=== PATIENT | male | born 1960 | race Caucasian/White ===

== ENCOUNTER → 2019-11-07 14:24 | Outpatient (CLI) | payer BC, SELFPAY ==
--- NOTE | ~2019-11-07 | XR_ITS ---
EXAMINATION: XR fl inj shoulder RT - MR/CT EXAM DATE: 11/07/2019 15:28 INDICATION: Right shoulder pain, states lifting injury 9-10 months ago. TECHNIQUE: A time-out was performed to verify the patient's name, date of , and procedure to b e performed. The procedure including the risks, benefits and alternatives were discussed with the pat ient. Risks discussed included bleeding and infection. The patient understood the risks and agreed to proceed. The skin overlying the right shoulder joint was prepped and draped in usual sterile fashion . Anesthetic was administered with 2 milliliters 1% lidocaine subcutaneously. A 22 G needle was adv anced under fluoroscopic guidance into the joint. A total of 12 mL of 1:200 of 529 mg/mL Multihance, 1:4 lidocaine, and 1:4 Omnipaque 240 was instilled. The needle was removed and the entry site was cleaned and dressed. There were no immediate complications. The DAP for this procedure was 0.085 Gy cm2. The procedure was performed on 11/07/2019. FINDINGS: Real-time fluoroscopy demonstrates the needle and contrast in the right shoulder joint. IMPRESSION: Successful right shoulder joint injection. Reviewed, dictated and finalized at location B. [employer]IVE EXPERIENCES
--- NOTE | ~2019-11-07 | MR_ITS ---
EXAMINATION: MR shoulder RT w con DATE: 11/07/2019 16:07 INDICATION: Right shoulder pain. TECHNIQUE: Magnetic resonance imaging (MRI) of the right shoulder was performed without intravenous c ontrast after intra-articular injection of contrast (MR arthrogram). Sequences included axial T1-weig hted FS FSE and T2-weighted FS FSE, coronal-oblique T1-weighted FS FSE and T2-weighted FS FSE, and sa gittal-oblique T1-weighted FSE and T2-weighed FS FSE. COMPARISON: None. FINDINGS: Coracoacromial arch: The acromion undersurface is flat in morphology (type I). There is inferolateral tilt of the acromion . There is severe acromioclavicular joint osteoarthritis. There is moderate subacromial/subdeltoid bu rsitis. Rotator cuff: There is severe supraspinatus tendinopathy and moderate infraspinatus tendinopathy. There is a small interstitial tear of infraspinatus tendon. Teres minor tendon is normal. There is moderate subscapula ris tendinopathy with small articular-sided tear. There is no asymmetric fatty atrophy of the rotator cuff muscle bellies. Biceps tendon and glenoid labrum: Biceps tendon is in bicipital groove. Intra-articular biceps tendon is normal. There is a degenerativ e tear of the superior labrum from 10:00 to 12:00 (SLAP tear). Fluid: The glenohumeral joint is well distended by contrast. Bones/cartilage: There is deep partial thickness cartilage loss of glenoid involving the central articular surface. Th ere is cartilage surface irregularity of humeral head. IMPRESSION: 1. Severe rotator cuff tendinopathy with small interstitial tear of infraspinatus tendon and small ar ticular-sided tear of subscapularis tendon. 2. Moderate glenohumeral joint chondrosis. 3. Severe acromioclavicular joint osteoarthritis. 4. Moderate subacromial/subdeltoid bursitis. Reviewed, dictated and finalized at location A. 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 Severe rotator cuff tendinopathy with small interstitial tear of infraspinat us tendon and small articular-sided tear of subscapularis tendon. 2. Moderate glenohumeral joint chondrosis. 3. Severe acromioclavicular joint osteoarthritis. 4. Moderate subacromial/subdeltoid bursitis.
== END ==
DX: M19.011 Primary osteoarthritis, right shoulder (principal); M75.51 Bursitis of right shoulder
CPT/HCPCS: 23350; 73222; 77002; A9577; Q9966

== ENCOUNTER → 2020-10-30 11:06 | Outpatient (CLI) | payer BC, SELFPAY ==
--- NOTE | ~2020-10-30 | XR_ITS ---
EXAMINATION: XR chest 2V EXAM DATE: 10/30/2020 11:20 INDICATION: Persistent cough. TECHNIQUE: Frontal and lateral projections of the chest obtained and reviewed. There is no prior sheryl dy for comparison. FINDINGS: Small to moderate amount of right, small amount of left-sided peripheral distribution airs pace disease which is suspicious for COVID pneumonia. No pneumothorax or pleural effusion. Cardiomedi astinal silhouette is normal. Patient has diffuse idiopathic skeletal hyperostosis (DISH). IMPRESSION: Small to moderate right, small left acute airspace disease likely COVID pneumonia. Reviewed, dictated and finalized at location A. 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
== END ==
PROVIDERS: PCP Family Medicine Adolescent Medicine; Visit Provider Family Medicine Adolescent Medicine
DX: R05 Cough (principal); R91.8 Other nonspecific abnormal finding of lung field
CPT/HCPCS: 71046

== ENCOUNTER 2024-07-23 02:05 | Day surgery (SDC) | payer BC, SELFPAY ==
[2024-07-11 14:52] VITALS: BMI 27.1
[2024-07-23 10:40] VITALS: BP 157/71; PULSE 85; RESP 16; TEMP 36.2; O2SAT 96
--- NOTE | 2024-07-23 11:05 | WPDANESEPPF ---
Anes - Initial Pre Proc Eval Procedure: Operation Date: 07/23/24 11:00 Proposed Procedures p Colonoscopy - Kevin Julio MD Date/Time: 07/23/24 11:05 Surgeon: Kevin Julio MD Pre Op Diagnosis: fam. hx. colon CA Patient Data Age: 63 Gender: M Height: 1.83 m Weight: 89 kg Last Vital Signs Temp 36.2 C L 07/23/24 10:40 Pulse 85 07/23/24 10:40 Resp 16 07/23/24 10:40 BP 157/71 H 07/23/24 10:40 Pulse Ox 96 07/23/24 10:40 O2 Del Method Room Air 07/23/24 10:40 Allergies Allergy/AdvReac Type Severity Reaction Status Date / Time Penicillins Allergy Mild rash Verified 07/23/24 10:50 Home Medications Medication Instructions Recorded Confirmed Type ascorbic acid (vitamin C) 1,000 mg 1 g PO DAILY 02/15/22 07/23/24 History tablet biotin 2,500 mcg capsule 2,500 mcg PO DAILY 02/15/22 07/23/24 History coenzyme Q10 75 mg capsule (Ultra 75 mg PO DAILY 02/15/22 07/23/24 History CoQ10) multivitamin (Multiple Vitamins 1 tablet PO DAILY 02/15/22 07/23/24 History tablet) vitamin E 200 unit capsule 200 unit PO DAILY 02/15/22 07/23/24 History syringe with needle, safety 3 mL #6 ea 06/27/23 07/23/24 Rx 22 gauge x 1 1/2 (BD Integra Syringe) tadalafil 5 mg tablet 5 mg PO DAILY #90 tabs 10/28/23 07/23/24 Rx testosterone cypionate 200 mg/mL 400 mg (2 mL) IM .[id number] #4 mL 02/14/24 07/23/24 Rx intramuscular oil atorvastatin 40 mg tablet See Rx Instructions .Route 06/14/24 07/23/24 Rx .COMPLEX #90 tabs omeprazole 20 mg capsule,delayed See Rx Instructions .Route 06/14/24 07/23/24 Rx release .COMPLEX #90 caps Patient hx anesthesia problems: none Family hx anesthesia problems: none Results Review: All pre-operative results and documents have been reviewed as part of the pre-operative evaluation. [facility] Past Medical History Medical History (Updated 07/23/24 @ 11:05 by Hemant Vance MD) Hyperlipidemia Surgical History Surgical History History of appendectomy History of tonsillectomy and adenoidectomy Family History Family History Father Heart disease Mother Heart disease Sibling Heart disease Grandparent Heart disease Social History Social History Smoking packs per day: 1.5 Smoking cigarettes per day: 30.0 Years smoked: 10 Smoking pack-years: 15.00 Smoking status: Former smoker Tobacco type: cigarettes Second hand tobacco smoke exposure: No Smoking end date: 10/10/89 Alcohol intake: current Drinks per week: 21 Substance use: never Substance use type: does not use Lack of Transportation: No Lack of Food: Never True Current Housing: I Have Housing Concerned About Future Housing: No Difficulty Paying Gas/Electric Bills: No Difficulty Paying for Meds: No Currently Unemployed: No Education: High School Diploma/GED Difficulty w/ Childcare or Family Care: No Living arrangements: alone Occupation/Education: occupation Gender identity (if verbalized by the patient): Male Sexual Orientation (if Verbalized by the Patient): Straight or Heterosexual Spiritual care concerns: No Agree to blood products: Yes Anes - Eval Final PreProcedure Day of Procedure 07/23/24 11:05 Patient weight: overweight Heart: regular rate and rhythm Lungs: clear to auscultation Airway: Mallampati scale class II Neurological: alert and oriented Last oral intake: >/= 8 hours ASA classification: II Emergent: no Anesthetic plan: proceed Anesthesia type and monitoring: general GIVS and standard monitoring Results Review: All pre-operative results and documents have been reviewed as part of the pre-operative evaluation. Informed Consent: The patient's anesthetic plan and its attendant risks and benefits were discussed with the patient/family/POA. Questions were solicited and answers provided to the satisfaction of the patient/family/POA.
[2024-07-23] MEDS: LACTATED RINGERS 1,000 ML 150 ML IV CONT (11:07)
--- NOTE | 2024-07-23 12:07 | PM.IMHP ---
H&P: HPI History of Present Illness Date/Time: 07/23/24 12:07 Chief Complaint: Family history of colon cancer. Narrative: Patient's last colonoscopy was more than 10 years ago. Here for follow-up and surveillance colonoscopy. Review of Systems Review of Systems: All systems reviewed & are unremarkable except as noted in HPI and below PMFSH Past Medical History Medical History (Updated 07/23/24 @ 12:07 by Kevin Julio MD) Hyperlipidemia Surgical History Surgical History History of appendectomy 1959' History of tonsillectomy and adenoidectomy Family History Family History Father Heart disease Mother Heart disease Sibling Heart disease Grandparent Heart disease Social History Social History Smoking packs per day: 1.5 Smoking cigarettes per day: 30.0 Years smoked: 10 Smoking pack-years: 15.00 Smoking status: Former smoker Tobacco type: cigarettes Second hand tobacco smoke exposure: No Smoking end date: 10/10/89 Alcohol intake: current Drinks per week: 21 Substance use: never Substance use type: does not use Lack of Transportation: No Lack of Food: Never True Current Housing: I Have Housing Concerned About Future Housing: No Difficulty Paying Gas/Electric Bills: No Difficulty Paying for Meds: No Currently Unemployed: No Education: High School Diploma/GED Difficulty w/ Childcare or Family Care: No Living arrangements: alone Occupation/Education: occupation Gender identity (if verbalized by the patient): Male Sexual Orientation (if Verbalized by the Patient): Straight or Heterosexual Spiritual care concerns: No Agree to blood products: Yes Meds Home Medications and Allergies Home Medications Medication Instructions Recorded Confirmed Type ascorbic acid (vitamin C) 1,000 mg 1 g PO DAILY 02/15/22 07/23/24 History tablet biotin 2,500 mcg capsule 2,500 mcg PO DAILY 02/15/22 07/23/24 History coenzyme Q10 75 mg capsule (Ultra 75 mg PO DAILY 02/15/22 07/23/24 History CoQ10) multivitamin (Multiple Vitamins 1 tablet PO DAILY 02/15/22 07/23/24 History tablet) vitamin E 200 unit capsule 200 unit PO DAILY 02/15/22 07/23/24 History syringe with needle, safety 3 mL #6 ea 06/27/23 07/23/24 Rx 22 gauge x 1 1/2 (BD Integra Syringe) tadalafil 5 mg tablet 5 mg PO DAILY #90 tabs 10/28/23 07/23/24 Rx testosterone cypionate 200 mg/mL 400 mg (2 mL) IM .[id number] #4 mL 02/14/24 07/23/24 Rx intramuscular oil atorvastatin 40 mg tablet See Rx Instructions .Route 06/14/24 07/23/24 Rx .COMPLEX #90 tabs omeprazole 20 mg capsule,delayed See Rx Instructions .Route 06/14/24 07/23/24 Rx release .COMPLEX #90 caps Allergies Allergy/AdvReac Type Severity Reaction Status Date / Time Penicillins Allergy Mild rash Verified 07/23/24 10:50 Vital Signs Vital Signs - 24 hr 07/23/24 10:40 Temperature 97.1 F L Pulse Rate 85 Respiratory Rate 16 Blood Pressure 157/71 H Pulse Oximetry 96 Oxygen Delivery Room Air Assessment and Plan Assessment and plan (1) Family history of colon cancer: Code(s): Z80.0 - Family history of malignant neoplasm of digestive organs Status: Acute Plan Patient deemed a good candidate for colonoscopy, will proceed.
[2024-07-23] MEDS: SIMETHICONE ORAL SUSPENSION 20 MG/0.3 ML 30 ML BOTTLE 0.6 ML IRRIGATION (12:15)
[2024-07-23 12:28] VITALS: BP 88/54; PULSE 92; RESP 18; O2SAT 95
[2024-07-23 12:38] VITALS: BP 98/64; PULSE 88; RESP 16; O2SAT 94
[2024-07-23 12:48] VITALS: BP 100/61; PULSE 78; RESP 18; O2SAT 97
== END 2024-07-23 13:09 | disposition home or self-care (01) ==
PROVIDERS: PCP Family Medicine Adolescent Medicine; Visit Provider Internal Medicine Gastroenterology
PROC: 0DJD8ZZ Inspection of Lower Intestinal Tract, Via Natural or Artificial Opening Endoscopic (ICD-10-PCS; CPT 45378; principal; 2024-07-23 11:00)
DX: Z12.11 Encounter for screening for malignant neoplasm of colon (principal); K57.30 Diverticulosis of large intestine without perforation or abscess without bleeding; K64.1 Second degree hemorrhoids; Z80.0 Family history of malignant neoplasm of digestive organs; E78.5 Hyperlipidemia, unspecified; Z79.890 Hormone replacement therapy; Z87.891 Personal history of nicotine dependence
CPT/HCPCS: 45378; J2003; J2704; J7120